=== PATIENT | male | born 1995 ===

== ENCOUNTER 2024-10-04 21:20 | Emergency (ER) | payer SELFPAY ==
[2024-10-04] MEDS: Diphtheria,Pertussis(Acell),Tetanus Vaccine 0.5 ML Syringe IM ONE (22:14)
== END 2024-10-04 22:24 | disposition home or self-care (01) ==
LOC: MW.ED 21:20
DX: T33.831A Superficial frostbite of right toe(s), initial encounter (principal); Z88.0 Allergy status to penicillin; Z88.1 Allergy status to other antibiotic agents; Z23 Encounter for immunization
CPT/HCPCS: 90471; 90715; 99283-25